=== PATIENT | female | born 1950 | race Caucasian/White ===

== ENCOUNTER → 2016-12-12 16:57 | Outpatient (CLI) | payer MEDICARE, OTHER ==
[2012-09-09 10:03] VITALS: BMI 38.2
== END | disposition home or self-care (01) ==
LOC: D.MAMMO 15:45
DX: Z12.31 Encounter for screening mammogram for malignant neoplasm of breast (principal)

== ENCOUNTER → 2017-05-24 11:11 | Outpatient (CLI) | payer MEDICARE, OTHER ==
[2012-09-09 10:03] VITALS: BMI 38.2
[2017-05-24 12:08] LABS: T4 THYROXIN - FREE 1.18 ng/dL (0.76-1.46); T4 THYROXINE 9.1 ug/dL (4.7-13.3); THYROID STIMULATING HORMONE 1.17 uIU/mL (0.36-3.74)
== END | disposition home or self-care (01) ==
LOC: D.LAB 11:11
PROVIDERS: Surgery
DX: E04.1 Nontoxic single thyroid nodule (principal)

== ENCOUNTER 2017-06-27 05:15 | Day surgery (SDC) | payer MEDICARE, OTHER ==
[2017-06-26 15:32] LABS: EOSINOPHILS 2.4 % (0-7); HEMATOCRIT 43.8 % (36.0-48.0); HEMOGLOBIN 14.6 g/dL (12-16); IMMATURE GRANULOCYTES 0.1 % (0-5); LYMPHOCYTES 29.2 % (15-50); MCH 32.4 pg (26.0-34.0); MCHC 33.3 g/dL (31.0-37.0); MCV 97.1 fL (80.0-100.0); MEAN PLATELET VOLUME 8.9 fL (7.4-10.4); MONOCYTES 7.6 % (2-11); NEUTROPHILS 59.7 % (40-80); PLATELET COUNT 241 10x3/uL (130-400); RBC 4.51 10x6/uL (4.00-5.40); RDW 13.6 % (11.5-14.5); WBC 8.7 10x3/uL (4.8-10.8)
[~2017-06-27] VITALS: Ht 162.6 cm; Wt 72.1 kg
[~2017-06-27 05:15] MED LIST: ADVAIR 250/501 DISK INH; BENADRYL25 MG PO; LIPITOR20 MG PO; MULTI-DAY VITAM1 TAB PO
[2017-06-27] MEDS ORDERED: ANEFRIN15 ML NS (08:15)
[2017-06-27 08:28] VITALS: BP 159/65; Ht 162.6 cm; Wt 72.1 kg
[2017-06-27] MEDS ORDERED: HYDROCODON-ACE1 EAC7 PO (12:19)
--- NOTE | 2017-06-27 14:15 | OP ---
PATIENT NAME: LUIS DANIEL COX MEDICAL RECORD: [id number] :46 LOCATION:[facility] ADMISSION DATE: SURGEON: CHASTITY CAMACHO MD DATE OF OPERATION: 06/27/2017 SURGEON: Chastity Camacho MD PROCEDURE: Left thyroid lobectomy. PREOPERATIVE DIAGNOSES: 1. Multinodular goiter. 2. Chronic obstructive pulmonary disease. 3. Tobacco dependence. POSTOPERATIVE DIAGNOSES: 1. Multinodular goiter. 2. Chronic obstructive pulmonary disease. 3. Tobacco dependence. ANESTHESIA: General. COMPLICATIONS: None. SPECIMENS: Left thyroid lobectomy. ANESTHESIA: General. ESTIMATED BLOOD LOSS: 30 cc. Case was clean. OPERATIVE COURSE: After consent was obtained, the patient was taken to the operating room and placed in the supine position on the operating table. A shoulder roll was placed. General anesthesia was given. A timeout was taken to confirm the correct patient and procedure. The neck was then prepped and draped in typical sterile fashion. An incision was made approximately 2 fingerbreadths above the sternal notch. The skin was incised with a #15 blade scalpel and 20 cc of local anesthetic were administered. Dissection continued through the platysma using electrocautery. Flaps were then raised both inferiorly and superiorly with a combination of electrocautery and blunt dissection. A self-retaining retractor was placed. The median raphe was taken down using electrocautery. The strap muscles were retracted to the left, off of the thyroid. The thyroid was rotated medially. The thyroid was circumferentially dissected out using a combination of blunt dissection as well as clips and Harmonic scalpel. The thyroid lobe was taken off the trachea using the Harmonic scalpel. The specimen was passed to the field and sent for permanent pathology. The operative site was copiously irrigated and suctioned. Attention was paid to hemostasis. The tracheoesophageal groove was dissected until the superior laryngeal nerve was identified. The nerve was intact. At this time, a Surgicel was placed below the left strap muscles. The strap muscles were closed using the 3-0 chromic suture. The platysma was closed using a 3-0 Vicryl. The skin was closed using 4-0 Monocryl, Mastisol and Steri-Strips. At the end of the case, all needle and instrument counts were correct. No complications occurred. The patient was extubated and transferred to the PACU in stable condition. OPERATIVE REPORT [id number] LUIS DANIEL COX TRANSINT:[id number] Voice Confirmation ID: [id number] DOCUMENT ID: [id number] CHASTITY CAMACHO MD at 1415 CC: [id number] DICTATION DATE: 06/27/17 1226 [employer] WORKER: 06/27/17 [address] [place] [address]
--- NOTE | 2017-06-27 16:07 | NUR ---
DISCHARGE INSTRUCTIONS REVIEWED, VERBALIZED UNDERSTADNING. DC'D VIA WC WITH STAFF
== END 2017-06-27 16:07 | disposition home or self-care (01) ==
LOC: D.OPS 05:15 → D.PAN 08:00 → D.OPS 08:00 → D.PAN 11:00 → D.OPS 11:00 → D.PAN 11:50 → D.OPS 16:07
PROVIDERS: Anesthesiology
DX: E04.2 Nontoxic multinodular goiter (principal); F17.200 Nicotine dependence, unspecified, uncomplicated; I10 Essential (primary) hypertension; J44.9 Chronic obstructive pulmonary disease, unspecified; Z01.812 Encounter for preprocedural laboratory examination

== ENCOUNTER → 2018-02-07 20:47 | Outpatient (CLI) | payer MEDICARE, OTHER ==
[2017-06-27 08:28] VITALS: BMI 27.3
[~2018-02-07 20:47] MED LIST changes: +ANEFRIN15 ML NS; +HYDROCODON-ACE1 EAC7 PO
== END | disposition home or self-care (01) ==
LOC: D.MAMMO 14:45
DX: Z12.31 Encounter for screening mammogram for malignant neoplasm of breast (principal)

== ENCOUNTER → 2018-05-13 12:55 | Outpatient (CLI) | payer MEDICARE, OTHER ==
[2017-06-27 08:28] VITALS: BMI 27.3
== END | disposition home or self-care (01) ==
LOC: D.CT 12:55
DX: J44.9 Chronic obstructive pulmonary disease, unspecified (principal)